=== PATIENT | male | born 1990 | race Caucasian/White ===

== ENCOUNTER 2019-06-05 16:59 | Emergency (ER) | payer SELFPAY ==
[~2019-06-05] VITALS: Ht 185.4 cm; Wt 74.1 kg
[2019-06-05 17:01] VITALS: BP 135/82
== END 2019-06-05 19:15 | disposition left against medical advice (07) ==
LOC: M ED 16:59
DX: Z53.29 Procedure and treatment not carried out because of patient's decision for other reasons (principal)

== ENCOUNTER 2019-06-06 01:13 | Emergency (ER) | payer MEDICAID, OTHER, SELFPAY ==
[~2019-06-06] VITALS: Ht 185.4 cm; Wt 75.0 kg
--- NOTE | 2019-06-06 11:18 | REP ---
LEFT FOREARM, TWO VIEWS: AP and lateral views of the left forearm are performed. There is advanced healing of an intraarticular fracture of the distal radius, which is well aligned. I have no prior study for comparison. No other acute fracture or dislocation is seen. Electronically Signed by Juan Haley MD 06/07/2019 09:21 P
[2019-06-06 11:42] VITALS: BP 111/63
== END 2019-06-06 11:45 | disposition home or self-care (01) ==
LOC: M ED 01:13
DX: S52.92XD Unspecified fracture of left forearm, subsequent encounter for closed fracture with routine healing (principal); X58.XXXD Exposure to other specified factors, subsequent encounter; Y92.099 Unspecified place in other non-institutional residence as the place of occurrence of the external cause; Y93.9 Activity, unspecified; Y99.9 Unspecified external cause status; Z72.0 Tobacco use

== ENCOUNTER 2019-06-19 16:23 | Inpatient (IN) | payer OTHER ==
[~2019-06-19] VITALS: Ht 185.4 cm; Wt 73.3 kg
[2019-06-19 16:53] LABS: HEMATOCRIT 49.7 % (42.0-52.0); HEMOGLOBIN 16.9 g/dl (13.5-17.5); MEAN CORPUSCULAR HEMOGLOBIN 31.9 pg (27.0-33.0); MEAN CORPUSCULAR VOLUME 93.8 fl (80.0-96.0); PLATELET COUNT, AUTOMATED 178 10^3/uL (150-450); WHITE BLOOD COUNT 7.4 10^3/uL (4.0-10.0)
--- NOTE | 2019-06-19 17:17 | REP ---
Clinical: Trauma. Technique: AP, lateral, bilateral oblique views of the left wrist. Findings: There is a nondisplaced intra-articular fracture involving the distal radial metaphysis. Carpal bones appear intact. Impression: Nondisplaced intra-articular fracture of the distal radial metaphysis. Electronically Signed by Talib Thomas MD 06/19/2019 05:08 P
[2019-06-19 17:34] LABS: ACETAMINOPHEN LEVEL < 2.0 UG/ML (10.0-30.0); ALBUMIN 5.1 GM/DL (3.2-5.2); ALT/SGPT 331 U/L (12-78); BILIRUBIN,DIRECT 0.3 MG/DL (0.0-0.2); BILIRUBIN,TOTAL 1.1 MG/DL (0.2-1.0); BLOOD UREA NITROGEN 19 MG/DL (7-18); CALCIUM LEVEL 9.7 MG/DL (8.5-10.1); CARBON DIOXIDE LEVEL 28 MEQ/L (21-32); CHLORIDE LEVEL 104 MEQ/L (98-107); CREATININE FOR GFR 1.02 MG/DL (0.70-1.30); ETHYL ALCOHOL (ETHANOL) < 0.003 % (0.000-0.010); GLOMERULAR FILTRATION RATE > 60.0 (>60); GLUCOSE, FASTING 85 MG/DL (70-100); POTASSIUM SERUM 4.2 MEQ/L (3.5-5.1); SALICYLATE LEVEL 2.3 MG/DL (5.0-30.0); SODIUM LEVEL 139 MEQ/L (136-145); TOTAL PROTEIN 9.3 GM/DL (6.4-8.2)
[2019-06-19] MEDS ORDERED: LORazepam 1 MG TAB PO ONE (18:15)
[2019-06-19 18:40] LABS: AMPHETAMINES LEVEL URINE POSITIVE (NEGATIVE); BARBITURATES URINE NEGATIVE (NEGATIVE); BENZODIAZEPINES URINE NEGATIVE (NEGATIVE); CANNABINOIDS URINE POSITIVE (NEGATIVE); COCAINE METABOLITE URINE NEGATIVE (NEGATIVE); METHADONE URINE NEGATIVE (NEGATIVE); OPIATES URINE NEGATIVE (NEGATIVE); PHENCYCLIDINE URINE NEGATIVE (NEGATIVE)
[2019-06-19] MEDS ORDERED: MOM 30ML SUSPENSION UDC PO PRN (19:15)
[2019-06-19] MEDS ORDERED: MAALOX 30 ML SUSP *UDC PO PRN (19:15)
[2019-06-19] MEDS ORDERED: IBUPROFEN 400 MG TAB PO PRN (19:15)
[2019-06-19] MEDS ORDERED: NICOTINE 21MG/24HR 1 EA TRANSDERMAL TD ONE (20:45)
[2019-06-19 23:24] VITALS: BP 161/99
[2019-06-20] MEDS: HALOPERIDOL 10 MG TAB PO PRN (00:06)
[2019-06-20] MEDS: traZODone 50 MG TAB PO PRN (00:06)
[2019-06-20] MEDS: LORazepam 2 MG TAB PO PRN ×2 (00:06→17:48)
[2019-06-20] MEDS: NICOTINE 21MG/24HR 1 EA TRANSDERMAL TD SCH ×3 (00:30→13:33)
[2019-06-20] MEDS ORDERED: diphenhydrAMINE 50 MG CAP PO ONE ×2 (01:45→02:15)
[2019-06-20] MEDS ORDERED: OLANZapine ORAL DISINTEGRATING TAB 5MG PO ONE ×2 (01:45→02:15)
[2019-06-20] MEDS ORDERED: LORazepam 2 MG TAB PO ONE ×2 (01:45→02:15)
[2019-06-20 05:10] VITALS: BP 120/74
[2019-06-20] MEDS ORDERED: diphenhydrAMINE 50 MG CAP PO PRN (12:30)
--- NOTE | 2019-06-20 12:32 | MHHPEPDOC ---
General Date Of Admission: Jun 19, 2019 Legal Status: 9.39 Chief Complaint "Everyone is trying to get me to cut my penis off." History of Present Illness HISTORY OF THE PRESENT ILLNESS: Patient is a 28 -year-old , , male, with unknown psychiatric history (ptsd?) who was brought to ED by [employer] after called by [facility] due to pt showing up there unscheduled acting bizarre, agitated, and paranoid but fled on foot and found by police later and had continue paranoia the everyone was trying to get to him to cut his penis off (hosp staff and people in the community), kidnap and/or kill him per ED. Pt stated in ED "if your going to take it (his penis)... cut the whole thing off now." He was paranoid, delusional, responding internal stimuli, agitated, and endorsed SI and plan to find a bridge and jump off. He did state he was a and did 1 tour in [place] in 2008, served 2 yrs, dishonorably d/c for cannabis use. He was a poor historian. Pt is a poor historian so information and history gathered for hospital records. Psychiatric Review of Systems Depression (2 or more weeks): suicidal thoughts Leandra (4 or more days of): denies Psychosis: auditory hallucination, delusions, paranoia PTSD: history of trauma, hypervigilance, mood fluctuations Anxiety: situational anxiety, stressor related anxiety Anxiety/ 6 months or more of: restlessness, keyed up, difficulty concentrating, irritability, muscle tension Past Psychiatric History Previous Psychiatric Diagnosis: diagnosed with ptsd when in the Previous Psychiatric Admissions: no history off Suicide Attempts: no history off [facility] Psychiatric medications: none Past Medical History Medical Problems s/p left radius fracture -treated Head Injury: No Seizures: No Hospitalizations: No Surgeries: No Family Medical/Psychiatric HX Medical Problems noncontributory Psychiatric Disorders: No Addiction: No Suicide Attemps/Completions: No Addiction History nicotine, amphetamines (utox positive), other (utox positive cannabis) Social History Childhood: unable to assess Abuse/Trauma:per hospital records has ptsd secondary tour in [facility] 2008 Current Living Situation: [place] where here as records say [place] Education: high school grad Employment: unemployed Social Support: unknown Legal: none known Marital: single Mental Status Examination General Appearance: unkempt, disheveled, appears stated age, hospital scubs/clothing, other (mats on the floor both sides of bed due to bizarre behavior, agitation at night) Build: average Demeanor: withdrawn, preoccupied, guarded Eye Contact: poor Activity: anxious Behavior: uncooperative, withdrawn Speech: impoverished Mood: irritable, other (focused on having a ciggarette) Mood "When can I smoke... I was told I could this morning?" Affect: constricted, inappropriate, labile, congruent, disorganized, other (focused on being able to smoke) Thought Process: incoherent, concrete, associative, flight of ideas, derailment Thought Content (Delusions): bizarre, paranoia, delusions, other (responding internal stimuli) Thought Content (Other): preoccupied, obsessional (smoking), guarded, ideas of reference, internal-stimuli, appears paranoid Thought Content (Aggressive): none reported Perception (Hallucinations): none reported Perception (Other): none reported Cognition (Impairment of): attention/concentration, ability to abstract Cognition(Intelligence Est.): average Oriented: Awake, Alert, Oriented times three Insight: poor Judgment: Poor Psychosis: Associations, Abstract Thinking, Psychotic Perceptions Diagnoses Psychosis Unspecified R/O substance induced psychosis secondary to amphetamines amphetamine/cannabis use d/o Hx of PTSD A-FIB/CHADSVASC A-FIB History Current/History of A-Fib/PAF?: No Current PO Anticoag Therapy: No Treatment Treatment ordered: NONE Reason Anticoagulant not given: Not indicated/[id number] Assessment Pt seen in room, disorganized still but orient to being in the hospital. Focus on being able to smoke asking when he can smoke today and that someone told him he'd be able to today. Unable to fully cooperated with interview as continues to be distracted, disorganized, incoherent at time, paranoid, delusional. Is not agitated today. Initial Treatment Plan 1. Patient was admitted on a 9.39 status. 2. Complete history was obtained. 3. With patients permission, family will be contacted and database will be expanded. 4. Patients medication regimen will be reviewed and changed accordingly. 5. Patient will be provided with protected environment. 6. Patient will be treated with individual, group, and milieu therapies. 7. Patient will receive supportive psych-education. 8. Discharge planning will commence immediately. 9. Outpatient follow-up treatment will be strongly recommended. 10. The initial treatment plan will focus initially on: * Depression. * Risk for suicide. * Substance abuse. 11. haldol 5mg bid and congentin 0.5mg qhs. ESTIMATED LENGTH OF STAY: 5-7 DAYS. TIME SPENT COUNSELING AND COORDINATING INITIAL CARE: 60 minutes. Vital Signs Vital Signs Date Time Temp Pulse Resp B/P (MAP) Pulse Ox O2 Delivery O2 Flow Rate FiO2 06/20/19 05:10 108 14 120/74 (89) 97 06/19/19 23:24 98.1 06/19/19 22:32 Room Air Laboratory Data 24H Labs Laboratory Tests 2 06/19/19 16:45: Nucleated Red Blood Cells % (auto) 0.0, Anion Gap 7L, Glomerular Filtration Rate > 60.0, Calcium Level 9.7, Aspartate Amino Transf (AST/SGOT) 177H, Alanine Aminotransferase (ALT/SGPT) 331H, Alkaline Phosphatase 67, Total Bilirubin 1.1H, Direct Bilirubin 0.3H, Total Protein 9.3H, Albumin 5.1, Albumin/Globulin Ratio 1.21, Thyroid Stimulating Hormone (TSH) 3.670, Salicylates Level 2.3L, Acetaminophen Level < 2.0L, Ethyl Alcohol Level < 0.003 06/19/19 17:44: Urine Amphetamines Screen POSITIVEH, Urine Benzodiazepines Screen NEGATIVE, Urine Opiates Screen NEGATIVE, Urine Methadone Screen NEGATIVE, Urine Payton iturates Screen NEGATIVE, Urine Phencyclidine Screen NEGATIVE, Urine Cocaine Metabolite Screen NEGATIVE, Urine Cannabinoids Screen POSITIVEH CBC/BMP Laboratory Tests 06/19/19 16:45 Red Blood Count 5.30, Mean Corpuscular Volume 93.8, Mean Corpuscular Hemoglobin 31.9, Mean Corpuscular Hemoglobin Concent 34.0, Red Cell Distribution Width 12.6 Medications Unable to Obtain Active Prescriptions or Reported Meds Allergies Coded Allergies: No Known Drug Allergies (Verified Allergy, Unknown, 06/05/19) ZAYDA LARA DO Jun 20, 2019 12:32
[2019-06-20] MEDS ORDERED: HALOPERIDOL 5 MG TAB PO ONE (13:00)
[2019-06-20 18:28] VITALS: BP 126/61
--- NOTE | 2019-06-20 19:04 | HPEPDOC ---
[facility] Medical History & Physical Date of Admission Jun 19, 2019 Date of Service: Jun 20, 2019 History and Physical CHIEF COMPLAINT: [facility] medical evaluation HISTORY OF PRESENT ILLNESS: 28 yo male admitted thru the ED with elevated liver enzymes, poly substance abuse and psychosis. Asked to see patient for medical evaluation. Patient states he wants his LUIS wrap back and broke his wrist 3 weeks ago. Patient is refusing to answer qeustions, exam and evaluation, agitated and walked out the door to get drink of water. . ASSESSMENT/PLAN: 1. psychosis - treatment and evaluation per psychiatry 2. elevated liver enzymes - check hep A,B,C screen and repeat LFT, lipase in AM 3. non displaced radial fracture (occured 3 weeks ago) - patient non compliant with wearing splint. Please reconsult for evaluation if needed when patient more cooperative/stable Vital Signs Vital Signs Date Time Temp Pulse Resp B/P (MAP) Pulse Ox O2 Delivery O2 Flow Rate FiO2 06/20/19 05:10 108 14 120/74 (89) 97 06/19/19 23:24 98.1 06/19/19 22:32 Room Air Home Medications Unable to Obtain Active Prescriptions or Reported Meds Allergies Coded Allergies: No Known Drug Allergies (Verified Allergy, Unknown, 06/05/19) A-FIB/CHADSVASC A-FIB History Current/History of A-Fib/PAF?: No JOSHUA HUNT DO Jun 20, 2019 18:31
[2019-06-20] MEDS: HALOPERIDOL 5 MG TAB PO SCH (22:09)
[2019-06-20] MEDS: BENZTROPINE 0.5 MG TAB PO SCH (22:10)
[2019-06-21 06:58] VITALS: BP 106/56
[2019-06-21 09:16] LABS: ALBUMIN 3.7 GM/DL (3.2-5.2); ALT/SGPT 239 U/L (12-78); BILIRUBIN,DIRECT 0.3 MG/DL (0.0-0.2); BILIRUBIN,TOTAL 0.8 MG/DL (0.2-1.0); LIPASE 212 U/L (73-393); TOTAL PROTEIN 7.1 GM/DL (6.4-8.2)
[2019-06-21] MEDS: NICOTINE 21MG/24HR 1 EA TRANSDERMAL TD SCH (09:41)
[2019-06-21] MEDS: HALOPERIDOL 5 MG TAB PO SCH ×2 (09:41→20:52)
--- NOTE | 2019-06-21 10:31 | MHIPNPDOC ---
[facility] Progress Note Progress Note DATE OF SERVICE: 06/21/19 HISTORY: Patient is a 28 -year-old , , male, with unknown psychiatric history (ptsd?) who was brought to ED by [employer] after called by [facility] due to pt showing up there unscheduled acting bizarre, agitated, and paranoid but fled on foot and found by police later and had continue paranoia the everyone was trying to get to him to cut his penis off (hosp staff and people in the community), kidnap and/or kill him per ED. Pt stated in ED "if your going to take it (his penis)... cut the whole thing off now." He was paranoid, delusional, responding internal stimuli, agitated, and endorsed SI and plan to find a bridge and jump off. He did state he was a and did 1 tour in [place] in 2008, served 2 yrs, dishonorably d/c for cannabis use. He was a poor historian. Pt is a poor historian so information and history gathered for hospital records. t seen in room, disorganized still but orient to being in the hospital. Focus on being able to smoke asking when he can smoke today and that someone told him he'd be able to today. Unable to fully cooperated with interview as continues to be distracted, disorganized, incoherent at time, paranoid, delusional. Is not agitated today. VITAL SIGNS: See below. NEW TEST RESULTS:See below. CURRENT MEDICATIONS: See below. MENTAL STATUS EXAMINATION: General Appearance: unkempt, disheveled, appears stated age, hospital scrubs/clothing Build: average Demeanor: pleasant, cooperative Eye Contact: fair Activity: average, calm Behavior: cooperative, pleasant Speech: reg rate/rhythm/volume Mood: euthymic, full Mood "better" Affect: euthymic, full, calm Thought Process: linear/logical, denies SI/HI, hallucinations, delusions Thought Content (Delusions): denies and no longer appears psychotic Thought Content (Other): denies, appropriate Thought Content (Aggressive): none reported Perception (Hallucinations): none reported Perception (Other): none reported Cognition (Impairment of): no impairment Cognition(Intelligence Est.): average Oriented: Awake, Alert, Oriented times three Insight: fair Judgment: fair Psychosis: denies DIAGNOSES: Psychosis Unspecified R/O substance induced psychosis secondary to amphetamines amphetamine/cannabis use d/o Hx of PTSD ASSESSMENT:Pt seen and states that his mood is better and denies any more symptoms of psychosis and does not appear psychotic and thoughts are linear/logical. States haldol is beneficial and it tolerating it well. States he usually has symptoms of psychosis with the use of substances that clear within a day as the drug leaves his system. Encouraged to stop using substances so does not experience psychosis and possible hospitalization, danger to self or others in the future. States he slept well last night. Feels he is tolerating his medications and they're beneficial. He is attending groups and finding them helpful. He denies SI/HI, hallucinations, delusions. Pt feels safe here. MANAGEMENT PLAN: continue current plan. Most like does not need to continue terminal worker as psychosis appears amphetamine related Medications: haldol 5mg bid congentin 0.5mg qhs. TIME SPENT: 30 minutes. Vital Signs Vital Signs Date Time Temp Pulse Resp B/P (MAP) Pulse Ox O2 Delivery O2 Flow Rate FiO2 06/21/19 06:58 98.2 59 12 106/56 (73) 06/20/19 05:10 97 06/19/19 22:32 Room Air Laboratory Data 24H Labs Laboratory Tests 2 06/21/19 07:17: Aspartate Amino Transf (AST/SGOT) 112H, Alanine Aminotransferase (ALT/SGPT) 239H, Alkaline Phosphatase 57, Total Bilirubin 0.8, Direct Bilirubin 0.3H, Total Protein 7.1#, Albumin 3.7#, Albumin/Globulin Ratio 1.09, Lipase 212 Current Medications Current Medications Medications (Trade) Dose Ordered Sig/Elke Route PRN Reason Start Time Stop Time Status Last Admin Dose Admin Al Hydrox/Mg Hydrox/Simethicone (Mylanta) 30 ml Q4HP PRN PO HEARTBURN/INDIGESTION 06/19/19 19:15 Benztropine Mesylate (Cogentin) 0.5 mg QHS PO 06/20/19 21:00 06/20/19 22:10 Diphenhydramine HCl (Benadryl) 50 mg Q4HP PRN PO ITCHING 06/20/19 12:30 Haloperidol (Haldol) 5 mg BID PO 06/20/19 21:00 06/21/19 09:41 Haloperidol (Haldol) 10 mg Q6HP PRN PO ANXIETY/AGITATION 06/19/19 19:15 06/20/19 00:06 Home Med (Med Rec Complete!) ASDIRECTED XX 06/19/19 19:30 06/19/19 19:30 DC Ibuprofen (Advil) 400 mg Q6HP PRN PO PAIN 06/19/19 19:15 Lorazepam (Ativan) 2 mg Q6HP PRN PO ANXIETY/AGITATION 06/19/19 19:15 06/20/19 17:48 Magnesium Hydroxide (Milk Of Magnesia) 30 ml DAILYPRN PRN PO CONSTIPATION 06/19/19 19:15 Nicotine (Nicoderm Cq 21mg) 1 patch DAILY TD 06/20/19 00:30 06/21/19 09:41 Trazodone HCl (Desyrel) 50 mg QHSP PRN PO INSOMNIA 06/19/19 19:15 06/20/19 00:06 Allergies Coded Allergies: No Known Drug Allergies (Verified Allergy, Unknown, 06/05/19) ZAYDA LARA DO Jun 21, 2019 10:31
[2019-06-21] MEDS: LORazepam 2 MG TAB PO PRN ×2 (12:18→20:52)
[2019-06-21 18:29] VITALS: BP 128/58
[2019-06-21] MEDS: BENZTROPINE 0.5 MG TAB PO SCH (20:52)
[2019-06-21] MEDS: traZODone 50 MG TAB PO PRN (20:52)
[2019-06-22 06:59] VITALS: BP 135/60
[2019-06-22 08:52] LABS: ALBUMIN 3.7 GM/DL (3.2-5.2); ALT/SGPT 210 U/L (12-78); BILIRUBIN,DIRECT 0.2 MG/DL (0.0-0.2); BILIRUBIN,TOTAL 0.4 MG/DL (0.2-1.0); BLOOD UREA NITROGEN 14 MG/DL (7-18); CALCIUM LEVEL 8.6 MG/DL (8.5-10.1); CARBON DIOXIDE LEVEL 27 MEQ/L (21-32); CHLORIDE LEVEL 109 MEQ/L (98-107); CREATININE FOR GFR 0.87 MG/DL (0.70-1.30); GLOMERULAR FILTRATION RATE > 60.0 (>60); GLUCOSE, FASTING 95 MG/DL (70-100); POTASSIUM SERUM 4.3 MEQ/L (3.5-5.1); SODIUM LEVEL 142 MEQ/L (136-145)
[2019-06-22] MEDS: HALOPERIDOL 5 MG TAB PO SCH ×2 (09:31→20:49)
[2019-06-22] MEDS: NICOTINE 21MG/24HR 1 EA TRANSDERMAL TD SCH (09:31)
--- NOTE | 2019-06-22 09:52 | IPNPDOC ---
Text Note Date of Service The patient was seen on 06/22/19. NOTE Jose Davis is a 28-year-old male, admitted on account of polysubstance ab use with psychosis. Patient also presented with elevated liver enzymes. Subjective: Complains of left wrist pain from fracture sustained 3 weeks ago. Forearm was evaluated at another facility and a cast was placed per patient. Patient also reports cast was removed at this facility. Staff however report patient took off the cast himself. Otherwise, denies nausea, vomiting, abdominal pain, diarrhea, constipation, chills or fever. GENERAL: NAD SKIN : Warm, dry intact HEENT: Atraumatic, normocephalic, PERRL, moist mucous membrane CARDIOVASCULAR: Regular rate and rhythm, S1S2, no JVD, no edema, distal pulses + palpable RESP: CTAB, no accessory muscle use noted ABDOMEN: BS+ non distended non tender MS: no joint deformities NEURO: Alert and oriented x 3, CN2-12 grossly intact PSYCH: no anxiety or agitation, appropriate mood and affect. Assessment/Plan Transaminitis -Possibly due to polysubstance abuse -Repeat levels this morning show a downward trend -Hepatitis panel has been ordered, results are pending Left forearm fracture -X-ray of the left forearm -If significant pathology will need orthopedic consult for input and management. Acute psychosis with polysubstance abuse -Management by primary team -Urine drug screen on admit was positive for amphetamines and THC -Patient, however, states these substances are not worth mentioning, as they're nothing VS,Fishbone, I+O VS, Fishbone, I+O Laboratory Tests 06/22/19 07:53 Calcium Level 8.6, Aspartate Amino Transf (AST/SGOT) 90 H, Alanine Aminotransferase (ALT/SGPT) 210 H, Alkaline Phosphatase 53, Total Bilirubin 0.4, Direct Bilirubin 0.2, Total Protein 7.0, Albumin 3.7 Vital Signs Date Time Temp Pulse Resp B/P (MAP) Pulse Ox O2 Delivery O2 Flow Rate FiO2 06/22/19 06:59 99.2 64 16 135/60 (85) 06/21/19 11:19 Room Air 06/20/19 05:10 97 ENDY CHILDS Jun 22, 2019 09:51
--- NOTE | 2019-06-22 10:51 | MHIPNPDOC ---
[facility] Progress Note Progress Note Date of Service: 06/22/2019 History of Present Illness The patient, a 28-year-old man, with a reported history of substance abuse, presents initially testing positive for methamphetamine and cannabis in a psychotic state. He was unable to participate in his initial interview and appeared bizarre and isolative to his room upon presentation. Interval History The patient was met with today where he described he did not remember the majority of his stay prior to his admission and was unclear as to why he had gotten admitted. He did report smoking methamphetamine for 2 to 3 days prior to his admission and had not been sleeping or eating. He has made significant improvement in his symptoms becoming much more able to demonstrate clear thoughts with no behavioral problems. He has not been started on any standing medications highly supporting a differential of substance-induced mood problems. Staff have reported no major concerns on the unit. Review Of Systems Improving mood, thought process. Psychotherapy None on this visit. Vital Signs Reviewed. Mental Status Examination General: Well dressed with good hygiene Speech: Spontaneous and fluid Thought processes: Linear and logical MSK: Smooth and coordinated gait, no signs of tremors or involuntary orofacial movements Thought content: Future orientated Abstract reasoning, and computation: Intact Description of associations: Intact Description of abnormal or psychotic thoughts: Denies any suicidal or homicidal ideation. Denies any auditory or visual hallucinations. Does not appear to be responding to internal stimuli. Does not appear to be endorsing any bizarre or paranoid ideation. Judgment: fair Insight: fair Orientation: Alert and orientated 3 Cognition: Grossly normal Recent and remote memory: Intact Attention span and concentration: Intact Fund of knowledge: Adequate Mood: "okay" Affect: Euthymic with a full range Diagnoses Unspecified psychotic disorder. Rule out substance induced. Methamphetamine use disorder, severe. Cannabis use disorder, severe. Assessment and Plan The patient appears to be making strong improvement with very little to no medications, which is highly suggestive of substance-induced psychosis. His current living situation is precarious, as he's living in a tent reportedly in [facility]. Due to recently moving from [place], he does not qualify for [facility] and thus will need another day of inpatient time in order to plan for a safe and effective discharge, as his substance use seems to provoke his admission. Disposition Likely discharge tomorrow once a more effective discharge plan is in place, as the patient's substance use as well as psychosocial, placement issues will likely provoke another admission if not adequately addressed. Time Spent 15 minutes. Saturday Vital Signs Vital Signs Date Time Temp Pulse Resp B/P (MAP) Pulse Ox O2 Delivery O2 Flow Rate FiO2 06/22/19 06:59 99.2 64 16 135/60 (85) 06/21/19 11:19 Room Air 06/20/19 05:10 97 Laboratory Data 24H Labs Laboratory Tests 2 06/22/19 07:53: Anion Gap 6L, Glomerular Filtration Rate > 60.0, Blood Urea Nitrogen 14, Creatinine 0.87, Sodium Level 142, Potassium Level 4.3, Chloride Level 109H, Carbon Dioxide Level 27, Calcium Level 8.6, Aspartate Amino Transf (AST/SGOT) 90H, Alanine Aminotransferase (ALT/SGPT) 210H, Alkaline Phosphatase 53, Total Bilirubin 0.4, Direct Bilirubin 0.2, Total Protein 7.0, Albumin 3.7, Albumin/Globulin Ratio 1.12 CBC/BMP Laboratory Tests 06/22/19 07:53 Calcium Level 8.6, Aspartate Amino Transf (AST/SGOT) 90 H, Alanine Aminotransferase (ALT/SGPT) 210 H, Alkaline Phosphatase 53, Total Bilirubin 0.4, Direct Bilirubin 0.2, Total Protein 7.0, Albumin 3.7 Current Medications Current Medications Medications (Trade) Dose Ordered Sig/Elke Route PRN Reason Start Time Stop Time Status Last Admin Dose Admin Al Hydrox/Mg Hydrox/Simethicone (Mylanta) 30 ml Q4HP PRN PO HEARTBURN/INDIGESTION 06/19/19 19:15 Benztropine Mesylate (Cogentin) 0.5 mg QHS PO 06/20/19 21:00 06/21/19 20:52 Diphenhydramine HCl (Benadryl) 50 mg Q4HP PRN PO ITCHING 06/20/19 12:30 Haloperidol (Haldol) 5 mg BID PO 06/20/19 21:00 06/22/19 09:31 Haloperidol (Haldol) 10 mg Q6HP PRN PO ANXIETY/AGITATION 06/19/19 19:15 06/20/19 00:06 Home Med (Med Rec Complete!) ASDIRECTED XX 06/19/19 19:30 06/19/19 19:30 DC Ibuprofen (Advil) 400 mg Q6HP PRN PO PAIN 06/19/19 19:15 06/21/19 20:52 Lorazepam (Ativan) 2 mg Q6HP PRN PO ANXIETY/AGITATION 06/19/19 19:15 06/21/19 20:52 Magnesium Hydroxide (Milk Of Magnesia) 30 ml DAILYPRN PRN PO CONSTIPATION 06/19/19 19:15 Nicotine (Nicoderm Cq 21mg) 1 patch DAILY TD 06/20/19 00:30 06/22/19 09:31 Trazodone HCl (Desyrel) 50 mg QHSP PRN PO INSOMNIA 06/19/19 19:15 06/21/19 20:52 Allergies Coded Allergies: No Known Drug Allergies (Verified Allergy, Unknown, 06/05/19) MIKI JORDAN DO Jun 22, 2019 10:51
[2019-06-22] MEDS: HALOPERIDOL 10 MG TAB PO PRN (11:09)
[2019-06-22 11:32] LABS: HEPATITIS B SURFACE ANTIGEN NEGATIVE (NEGATIVE)
[2019-06-22 12:00] LABS: HEPATITIS B CORE ANTIBODY IGM NEGATIVE (NEGATIVE)
[2019-06-22 12:02] LABS: HEPATITIS A ANTIBODY IGM NEGATIVE (NEGATIVE)
[2019-06-22 12:37] LABS: HEPATITIS C VIRUS ABY INDEX > 11.0 INDEX (<0.8)
[2019-06-22 18:21] VITALS: BP 132/65
[2019-06-22] MEDS: BENZTROPINE 0.5 MG TAB PO SCH (20:49)
[2019-06-22] MEDS: traZODone 50 MG TAB PO PRN (20:49)
[2019-06-22] MEDS: LORazepam 2 MG TAB PO PRN (20:49)
--- NOTE | 2019-06-23 04:45 | REP ---
Clinical: Fracture. Technique: AP and lateral views of the left forearm. Findings: A subtle nondisplaced intra-articular fracture involving the radial styloid at the wrist is suggested. Scaphoid fracture cannot be excluded. Impression: Fractures at the distal radius/wrist suspected. Electronically Signed by Talib Thomas MD 06/23/2019 04:36 A
[2019-06-23 06:44] VITALS: BP 141/62
[2019-06-23 07:43] LABS: ALBUMIN 3.9 GM/DL (3.2-5.2); ALT/SGPT 197 U/L (12-78); BILIRUBIN,TOTAL 0.5 MG/DL (0.2-1.0); BLOOD UREA NITROGEN 13 MG/DL (7-18); CALCIUM LEVEL 8.8 MG/DL (8.5-10.1); CARBON DIOXIDE LEVEL 28 MEQ/L (21-32); CHLORIDE LEVEL 109 MEQ/L (98-107); CREATININE FOR GFR 0.86 MG/DL (0.70-1.30); GLOMERULAR FILTRATION RATE > 60.0 (>60); GLUCOSE, FASTING 94 MG/DL (70-100); POTASSIUM SERUM 4.3 MEQ/L (3.5-5.1); SODIUM LEVEL 142 MEQ/L (136-145)
[2019-06-23] MEDS: HALOPERIDOL 5 MG TAB PO SCH (08:30)
[2019-06-23] MEDS: NICOTINE 21MG/24HR 1 EA TRANSDERMAL TD SCH (08:30)
--- NOTE | 2019-06-23 11:03 | IPNPDOC ---
Text Note Date of Service The patient was seen on 06/23/19. NOTE Jose Davis is a 28-year-old male, admitted on account of polysubstance ab use with psychosis. Patient also presented with elevated liver enzymes. Subjective: Pending results of monitoring labs. discussed with patient., denies nausea, vomiting, abdominal pain, diarrhea, constipation, chills or fever. GENERAL: NAD SKIN : Warm, dry intact HEENT: Atraumatic, normocephalic, PERRL, moist mucous membrane CARDIOVASCULAR: Regular rate and rhythm, S1S2, no JVD, no edema, distal pulses + palpable RESP: CTAB, no accessory muscle use noted ABDOMEN: BS+ non distended non tender MS: no joint deformities NEURO: Alert and oriented x 3, CN2-12 grossly intact PSYCH: no anxiety or agitation, appropriate mood and affect. Assessment/Plan Transaminitis -Possibly due to polysubstance abuse -Laboratory data this a.m. show decreasing values have elevated liver enzymes -Patient has no symptoms Left forearm fracture -X-ray of the left forearm -Findings show a nondisplaced intra-articular fracture involving distal radial metaphysis. Subtle intra-articular fracture involving the radial styloid at wrist -Orthopedic consult for evaluation and input and recommendations Acute psychosis with polysubstance abuse -Management by primary team Levi ROSA I+O VSLevi I+O Laboratory Tests 06/23/19 06:53 Calcium Level 8.8, Aspartate Amino Transf (AST/SGOT) 78 H, Alanine Aminotransferase (ALT/SGPT) 197 H, Alkaline Phosphatase 50, Total Bilirubin 0.5, Total Protein 7.0, Albumin 3.9 Vital Signs Date Time Temp Pulse Resp B/P (MAP) Pulse Ox O2 Delivery O2 Flow Rate FiO2 06/23/19 06:44 98.4 56 12 141/62 (88) 06/21/19 11:19 Room Air 06/20/19 05:10 97 ENDY CHILDSP Jun 23, 2019 11:03
--- NOTE | 2019-06-23 17:18 | MHIPNPDOC ---
[facility] Progress Note Progress Note Date of Service: 06/23/2019 History of Present Illness The patient, a 28-year-old man, with a reported history of substance abuse, presents initially testing positive for methamphetamine and cannabis in a psychotic state. He was unable to participate in his initial interview and appeared bizarre and isolative to his room upon presentation. Interval History The patient was met with today. He describes that he is feeling "better." He's had no problems on the unit, attends to his needs and made no concerning statements. He is attending groups at times but does describe that he is generally uninterested in dealing with others. He is currently being worked up medically and was found to have hepatitis C and fractures of which he is getting consultations on our unit for. He describes he wishes to go tomorrow and he does not meet involuntary criteria at this time and thus would need to be discharged tomorrow. His social situation is unstable. However, after discussing with him, he describes that he would rather live in a tent and attempt to find work here for a short time before returning to [place] to live with his mother. He describes that working with the [employer] administration could be helpful to improving his outpatient situation. Review Of Systems Denies any side effects from Haldol such as tremors, over sedation or other concerning side effects. Psychotherapy None on this visit. Vital Signs Reviewed. Mental Status Examination General: Well dressed with good hygiene Speech: Spontaneous and fluid Thought processes: Linear and logical MSK: Smooth and coordinated gait, no signs of tremors or involuntary orofacial movements Thought content: Future orientated Abstract reasoning, and computation: Intact Description of associations: Intact Description of abnormal or psychotic thoughts: Denies any suicidal or homicidal ideation. Denies any auditory or visual hallucinations. Does not appear to be responding to internal stimuli. Does not appear to be endorsing any bizarre or paranoid ideation. Judgment: fair Insight: fair Orientation: Alert and orientated 3 Cognition: Grossly normal Recent and remote memory: Intact Attention span and concentration: Intact Fund of knowledge: Adequate Mood: "okay" Affect: Euthymic with a full range Diagnoses Unspecified psychotic disorder. Rule out substance induced. Methamphetamine use disorder, severe. Cannabis use disorder, severe. 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 However, he does not tolerate the Haldol well as it does not appear to do much for him. Will discontinue Cogentin and Haldol and start Zyprexa 5 mg nightly as this will likely help with reported racing thoughts at night and could help ensure some level of stability as an outpatient. Disposition Likely discharge tomorrow. Time Spent 15 minutes face to face. Saturday Vital Signs Vital Signs Date Time Temp Pulse Resp B/P (MAP) Pulse Ox O2 Delivery O2 Flow Rate FiO2 06/23/19 06:44 98.4 56 12 141/62 (88) 06/21/19 11:19 Room Air 06/20/19 05:10 97 Laboratory Data 24H Labs Laboratory Tests 2 06/23/19 06:53: Anion Gap 5L, Glomerular Filtration Rate > 60.0, Blood Urea Nitrogen 13, Creatinine 0.86, Sodium Level 142, Potassium Level 4.3, Chloride Level 109H, Carbon Dioxide Level 28, Calcium Level 8.8, Aspartate Amino Transf (AST/SGOT) 78H, Alanine Aminotransferase (ALT/SGPT) 197H, Alkaline Phosphatase 50, Total Bilirubin 0.5, Total Protein 7.0, Albumin 3.9, Albumin/Globulin Ratio 1.26 CBC/BMP Laboratory Tests 06/23/19 06:53 Calcium Level 8.8, Aspartate Amino Transf (AST/SGOT) 78 H, Alanine Aminotransferase (ALT/SGPT) 197 H, Alkaline Phosphatase 50, Total Bilirubin 0.5, Total Protein 7.0, Albumin 3.9 Current Medications Current Medications Medications (Trade) Dose Ordered Sig/Elke Route PRN Reason Start Time Stop Time Status Last Admin Dose Admin Al Hydrox/Mg Hydrox/Simethicone (Mylanta) 30 ml Q4HP PRN PO HEARTBURN/INDIGESTION 06/19/19 19:15 Benztropine Mesylate (Cogentin) 0.5 mg QHS PO 06/20/19 21:00 06/23/19 16:28 DC 06/22/19 20:49 Diphenhydramine HCl (Benadryl) 50 mg Q4HP PRN PO ITCHING 06/20/19 12:30 Haloperidol (Haldol) 5 mg BID PO 06/20/19 21:00 06/23/19 16:28 DC 06/23/19 08:30 Haloperidol (Haldol) 10 mg Q6HP PRN PO ANXIETY/AGITATION 06/19/19 19:15 8/5/19 11:09 Home Med (Med Rec Complete!) ASDIRECTED XX 06/19/19 19:30 06/19/19 19:30 DC Ibuprofen (Advil) 400 mg Q6HP PRN PO PAIN 06/19/19 19:15 06/21/19 20:52 Lorazepam (Ativan) 2 mg Q6HP PRN PO ANXIETY/AGITATION 06/19/19 19:15 06/22/19 20:49 Magnesium Hydroxide (Milk Of Magnesia) 30 ml DAILYPRN PRN PO CONSTIPATION 06/19/19 19:15 Nicotine (Nicoderm Cq 21mg) 1 patch DAILY TD 06/20/19 00:30 06/23/19 08:30 Olanzapine (ZyPREXA) 5 mg QHS PO 06/23/19 21:00 Trazodone HCl (Desyrel) 50 mg QHSP PRN PO INSOMNIA 06/19/19 19:15 06/22/19 20:49 Allergies Coded Allergies: No Known Drug Allergies (Verified Allergy, Unknown, 06/05/19) MIKI JORDAN DO Jun 23, 2019 17:18
[2019-06-23 18:00] VITALS: BP 105/58
[2019-06-23] MEDS: traZODone 50 MG TAB PO PRN (19:59)
[2019-06-23] MEDS: LORazepam 2 MG TAB PO PRN (20:00)
[2019-06-23 20:01] VITALS: BP 141/62
[2019-06-23] MEDS ORDERED: OLANZapine 5 MG TAB PO SCH (21:00)
[2019-06-24 06:44] VITALS: BP 132/63
[2019-06-24 06:55] LABS: ALBUMIN 3.9 GM/DL (3.2-5.2); BILIRUBIN,DIRECT 0.2 MG/DL (0.0-0.2); BILIRUBIN,TOTAL 0.5 MG/DL (0.2-1.0); TOTAL PROTEIN 7.1 GM/DL (6.4-8.2)
[2019-06-24] MEDS: NICOTINE 21MG/24HR 1 EA TRANSDERMAL TD SCH (08:29)
[2019-06-24] MEDS ORDERED: OLAN5TAB PO (10:45)
[2019-06-24] MEDS ORDERED: NICO21PAT TD (10:45)
--- NOTE | 2019-06-24 10:49 | MHDSPDOC ---
[facility] Discharge Summary Discharge Summary DATE OF ADMISSION: Jun 19, 2019 at 19:05 DATE OF DISCHARGE: 06/24/19 Date of Service: 06/24/2019 Diagnoses Unspecified psychotic disorder. Rule out substance-induced. Methamphetamine use disorder, severe. Cannabis use disorder, severe. Nicotine use disorder, severe. History of Present Illness The patient, a 28-year-old man, with a reported history of substance abuse, presents initially testing positive for methamphetamine and cannabis in a psychotic state. He was unable to participate in his initial interview and appeared bizarre and isolative to his room upon presentation. Consultants Involved Hospitalist/PCP screening Consultants found fractures and positive hepatitis C discussed with patient. These issues and the need for outpatient follow up, patient reported that he understood this and was agreeable to further follow up. Treatment and Progress On The Unit This was admitted to the unit and was initially somewhat psychotic. However, he was positive for cannabis and methamphetamine on admission. The patient was started on 5 mg of Haldol BID with Cogentin that appear to reduce his symptoms. However, he did not appear to have difficulty sleeping and was mildly not close to his baseline on Saturday prior to his discharge. His outpatient pillowcase maker met with him and saw that he was very much not as baseline still somewhat paranoid and bizarre. He was changed on to Zyprexa 5 mg nightly and discontinued on Haldol and Cogentin with positive results with no racing thoughts, no behavioral problems, no suicidal or homicidal ideation, and no paranoid ideation endorsed to any of the staff. He requested discharge and at that time did not meet involuntary criteria due to the lack of concerning symptoms and/or immediate threats to his safety and elected against a further volunteer admission. Inpatient team attempted to create a more effective discharge plan. However, the patient described that [place] and that he would attempt to get a job and stay with a friend until he was able to have more stable social situation. 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 Mental Status Examination General: Well dressed with good hygiene Speech: Spontaneous and fluid Thought processes: Linear and logical MSK: Smooth and coordinated gait, no signs of tremors or involuntary orofacial movements Thought content: Future orientated Abstract reasoning, and computation: Intact Description of associations: Intact Description of abnormal or psychotic thoughts: Denies any suicidal or homicidal ideation. Denies any auditory or visual hallucinations. Does not appear to be responding to internal stimuli. Does not appear to be endorsing any bizarre or paranoid ideation. Judgment: fair Insight: fair Orientation: Alert and orientated 3 Cognition: Grossly normal Recent and remote memory: Intact Attention span and concentration: Intact Fund of knowledge: Adequate Mood: "okay" Affect: Euthymic with a full range Follow Up The social work team worked during the predischarge meeting in order to evaluate for further issues of lethality address them fully before discharge. They worked on safety planning with the patient's family members in order to ensure that the patient will have a safe and effective discharge. The patient will follow up with [facility] as he is not eligible for [facility] benefits for his medical problems of fractures and hep C. Time Spent The amount of time spent in the coordination of care for this patient was approximately 30 minutes. Saturday Vital Signs/I&Os Vital Signs Date Time Temp Pulse Resp B/P (MAP) Pulse Ox O2 Delivery O2 Flow Rate FiO2 06/24/19 06:44 97.8 64 12 132/63 (86) 06/23/19 20:01 97 06/21/19 11:19 Room Air Laboratory Data Labs 24H Laboratory Tests 2 06/24/19 06:05: Aspartate Amino Transf (AST/SGOT) 83H, Alanine Aminotransferase (ALT/SGPT) 203H, Alkaline Phosphatase 50, Total Bilirubin 0.5, Direct Bilirubin 0.2, Total Protein 7.1, Albumin 3.9, Albumin/Globulin Ratio 1.22 Medications Scheduled Nicotine (Nicotine Patch) 21 Mg Patch.td24, 1 PATCH TD DAILY for smoking for 30 Days, #30 Olanzapine (Olanzapine) 5 Mg Tablet, 5 MG PO QHS for mood for 7 Days, #7 Allergies Coded Allergies: No Known Drug Allergies (Verified Allergy, Unknown, 06/05/19) MIKI JORDAN DO Jun 24, 2019 10:49
== END 2019-06-24 12:05 | disposition home or self-care (01) | DRG 776 ==
LOC: M ED 16:23 → M ED INP 19:05 → M PSY 23:07
PROVIDERS: ADMIT Psychiatry & Neurology Psychiatry; ATTEND Psychiatry & Neurology Addiction Medicine
DX: F15.259 Other stimulant dependence with stimulant-induced psychotic disorder, unspecified (principal); S52.515A Nondisplaced fracture of left radial styloid process, initial encounter for closed fracture; F43.10 Post-traumatic stress disorder, unspecified; Z91.82 Personal history of military deployment; F12.20 Cannabis dependence, uncomplicated; B19.20 Unspecified viral hepatitis C without hepatic coma; X58.XXXA Exposure to other specified factors, initial encounter; Y92.9 Unspecified place or not applicable; F17.200 Nicotine dependence, unspecified, uncomplicated

== ENCOUNTER 2019-06-26 03:44 | Emergency (ER) | payer OTHER ==
[~2019-06-26] VITALS: Ht 185.4 cm; Wt 74.1 kg
[~2019-06-26 03:44] MED LIST: NICO21PAT TD; OLAN5TAB PO
[2019-06-26 03:45] VITALS: BP 141/85
== END 2019-06-26 04:48 | disposition home or self-care (01) ==
LOC: M ED 03:44
DX: S52.502D Unspecified fracture of the lower end of left radius, subsequent encounter for closed fracture with routine healing (principal); X58.XXXD Exposure to other specified factors, subsequent encounter; Y92.89 Other specified places as the place of occurrence of the external cause; F33.9 Major depressive disorder, recurrent, unspecified; F41.9 Anxiety disorder, unspecified; F43.10 Post-traumatic stress disorder, unspecified